=== PATIENT | male | born 1995 | race Caucasian/White ===

== ENCOUNTER 2018-09-30 01:13 | Emergency (ER) | payer MEDICAID ==
[2018-09-30 01:36] VITALS: BP 128/77; PULSE 105; RESP 16; TEMP 99; O2SAT 97
--- NOTE | 2018-09-30 02:51 | ED PDOC ---
HPI: Abdomen Time Seen by Provider: 09/30/18 01:39 Chief Complaint (Nursing): Abdominal Pain History Per: Patient Onset/Duration Of Symptoms: Hrs Current Symptoms Are (Timing): Better Pain Scale Rating Of: 0 Additional Complaint(s): Hx of "vomiting disorder" presenting with vomiting, patient states that for the past 10 days he has been vomiting between 20 and 25 times. 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 States that he last used 10 days ago. States that he was able to keep down frozen grapes and gatorade. PMD: Erich Zaidi Past Medical History Reviewed: Historical Data, Nursing Documentation, Vital Signs Vital Signs: Last Vital Signs Temp 99.0 F 09/30/18 01:29 Pulse 105 H 09/30/18 01:29 Resp 16 09/30/18 01:29 BP 128/77 09/30/18 01:29 Pulse Ox 97 09/30/18 01:29 - Medical History Other PMH: Vomiting - Surgical History Surgical History: Endoscopy - Family History Family History: States: No Known Family Hx - Immunization History Hx Tetanus Toxoid Vaccination: No Hx Influenza Vaccination: No Hx Pneumococcal Vaccination: No - Home Medications Home Medications: Ambulatory Orders Medication Instructions Recorded Dicyclomine [Bentyl] 20 mg PO Q6 PRN #12 tab 03/13/16 Metoclopramide [Reglan] 10 mg PO Q8 #12 tab 03/13/16 Omeprazole 40 mg PO DAILY #30 tab 03/13/16 Ondansetron [Zofran] 4 mg PO Q8H #8 tab 03/13/16 - Allergies Allergies/Adverse Reactions: Allergies Allergy/AdvReac Type Severity Reaction Status Date / Time No Known Allergies Allergy Verified 03/12/16 16:49 Review of Systems ROS Statement: Except As Marked, All Systems Reviewed And Found Negative Gastrointestinal: Positive for: Nausea, Vomiting Physical Exam - Reviewed Nursing Documentation Reviewed: Yes Vital Signs Reviewed: Yes - Physical Exam Appears: Positive for: Well, Non-toxic, No Acute Distress Head Exam: Positive for: ATRAUMATIC, NORMAL INSPECTION, NORMOCEPHALIC Skin: Positive for: Normal Color, Warm, DRY Eye Exam: Positive for: EOMI, Normal appearance, PERRL ENT: Positive for: Normal ENT Inspection Neck: Positive for: Normal, Painless ROM Cardiovascular/Chest: Positive for: Regular Rate, Rhythm Respiratory: Positive for: CNT, Normal Breath Sounds Gastrointestinal/Abdominal: Positive for: Normal Exam, Soft. Negative for: Tenderness, Mass, Distended, Guarding, Rebound Back: Positive for: Normal Inspection Extremity: Positive for: Normal ROM Neurologic/Psych: Positive for: Alert, rn informatics II-XII, Oriented. Negative for: Motor/Sensory Deficits - ECG O2 Sat by Pulse Oximetry: 97 Pulse Ox Interpretation: Normal Medical Decision Making Medical Decision MakinAM Patient presenting with cyclical vomiting --Patient drinking gatorade, eating grapes, listening to iPod, very well appearing, normal vitals, normal exam --Patient does not appear in any acute distress, is well hydrated and well nourished (patient is obese) --Will give zofran ODT and re-eval 5AM --Patient spit up after reglan --IV medications and fluids were ordered including capsaicin cream, however patient eloped prior to treatment completion Disposition - Clinical Impression Clinical Impression: Vomiting - Disposition Disposition: Eloped Disposition Time: 05:16 Condition: UNKNOWN Forms: [facility] (E[place]ian)
[2018-09-30] MEDS ORDERED: Sodium Chloride 0.9% 1,000 ML IV STA (04:58)
== END 2018-09-30 05:25 | disposition home or self-care (01) ==
LOC: H.ER 01:13
DX: R11.10 Vomiting, unspecified (principal)